=== PATIENT | male | born 1970 | race Caucasian/White ===

== ENCOUNTER 2017-03-13 10:24 | Emergency (ER) | payer OTHER ==
[2017-03-13] MEDS ORDERED: OXYMETAZOLINE 0.05% NASAL 15 SPRAYS/15 ML BTL NASAL ONE (10:48)
--- NOTE | 2017-03-13 14:04 | ER NURSING DOCUMENTATION ---
Nurse's Notes [facility] Name:César Ferguson Age:46 yrs Sex:Male :1970 Arrival Date:03/13/2017 Time:10:24 Bed2 Private MD:Nishant Reeves Diagnosis:Anterior Epistaxis Presentation: 03/13 10:29 Acuity: VIPIN 3 lc 10:29 Transition of care: Home. 10:29 Method Of Arrival: Private Vehicle 10:39 Presenting complaint: Patient states: Bloody nose since 8 am. Notified ED Physician of lp Lopez Martinez notified. Triage Assessment: 10:40 General: Appears in no apparent distress, Behavior is appropriate for age. Pain: Denies lp pain. EENT: Nares with bleeding noted on left. Neuro: No deficits noted. Neuro: Reports weakness baseline patient has MS. Cardiovascular: Respiratory: No deficits noted. GI: No deficits noted. : No deficits noted. Derm: No deficits noted. Musculoskeletal: No deficits noted. Historical: - Allergies: No known drug Allergies; - Home Meds: 1. Tecfidera oral 2. Ampyra oral 3. Baclofen Oral 4. Celexa Oral - PMHx: MULTIPLE SCLEROSIS; Pain- Acute, other (May 22, 2014); - PSHx: NONE; - Tetanus: < 10 years < 10 years. - Ebola Screening: : Patient negative for fever greater than or equal to 101.5 degrees Fahrenheit, and additional compatible Ebola Virus Disease symptoms. Patient denies exposure to infectious person. Patient denies travel to an Ebola-affected area in the 21 days before illness onset. . - Immunization history: Pneumococcal vaccine is up to date, Flu Vaccine < 1 year. - Social history: Smoking status: Patient states was never smoker of tobacco. Screenin:42 Infectious Disease Risk None. Abuse screen: Denies threats or abuse. Denies injuries lp from another. Nutritional screening: No deficits noted. Assessment: 10:42 See Triage Assessment done by same RN. lp 13:53 Reassessment: Patient states feeling better. Patient states symptoms have improved. lc Patient appears in no apparent distress at this time. VSS, NO FURTHER BLEEDING AFTER PACKING, GATORADE GIVEN AND SITTING IN CHAIR. FEELS READY FOR DISCHARGE AND SAFE TO DRIVE.. Vital Signs: 10:41 BP 137 / 90; Pulse 96; Resp 16; Temp 98.2(TE); Pulse Ox 94% on R/A; Weight 72.57 kg; lp Height 5 ft. 9 in. (175.26 cm); Pain 0/10; 12:50 BP 122 / 77; Pulse 86; Resp 20; Pulse Ox 93% on R/A; Pain 0/10; rs 13:05 BP 119 / 84; Pulse 82; Resp 20; Pulse Ox 92% on R/A; Pain 0/10; rs 13:54 BP 123 / 81; Pulse 80; Resp 16; Pulse Ox 92% on R/A; Pain 0/10; lc 10:41 Body Mass Index 23.63 (72.57 kg, 175.26 cm) lp ED Course: 10:26 Patient arrived in ED. ds 10:26 Nishant Reeves MD is Private Physician. ds 10:29 Edwin Marroquin MD is Attending Physician. jm 10:29 Triage completed. lc 10:39 Annia Huitron, TAHMINA is Primary Nurse. lp 10:[address] Marroquin notified. lp 10:42 Valuables Remains with patient Patient has correct armband on for positive lp identification. Placed in gown. Bed in low position. Call light in reach. Side rails up X 1. 12:50 Assist Provider Assist provider with nosebleed control Pt became lightheaded, called rs away to phone. HOB down, encouraged slow deep resp. States this has happened to him before. VSS. Administered Medications: 10:44 Drug: Afrin Drops (0.05 %) 1 sprays; Route: Intranasal; Site: left nare; lp 11:18 Follow up: Response: No adverse reaction; Marked relief of symptoms lp Outcome: 13:43 Discharge ordered by . kasi 13:55 Discharged to home ambulatory. 13:55 Condition: stable 13:55 Discharge Assessment: Patient awake, alert and oriented x 3. No cognitive and/or functional deficits noted. Patient verbalized understanding of disposition instructions. 13:55 Discharge instructions given to patient, Instructed on discharge instructions, follow up and referral plans. Nosebleed care Demonstrated understanding of instructions. 14:03 Patient left the ED. lp 03/14 11:02 Discharge F/U Call: Unable to reach: no answer st 11:02 Discharge F/U Call: Unable to reach: left message with person person taking message: [facility] 15:27 Discharge F/U Call: Spoke with: patient. Are you having any pain? yes. How are you sc1 managing your pain? Patient is taking medication: Ibuprofen and wants to stay with that. 15:27 Discharge F/U Call: Have you filled your prescriptions? n/a Did your discharge instructions answer all of your questions? yes Have you made a f/u appointment? yes Overall Care on a scale of 1-10 with 10 being the best care, you rate our care as: the rating of 10. Further F/U necessary? None needed Signatures: Mary Sharp, RN RN Quiana Juarez RN RN Rosa Wilson RN RN lc Campbell, Sandy, RN RN sc1 Annia Huitron RN RN lp Srot, Deidra, Reg Reg ds Meyer, John, MD MD jm
--- NOTE | 2017-03-13 14:04 | ER PHYSICIAN DOCUMENTATION ---
Physician Documentation [facility] Name:César Ferguson Age:46 yrs Sex:Male :1970 Arrival Date:03/13/2017 Time:10:24 Bed2 Private MD:Nishant Reeves ED, John Disposition: 03/13/17 13:43 Discharged to Home/Self Care. Impression: Anterior Epistaxis. - Condition is Good. - Discharge Instructions: NASAL PACKING, Anterior (Removable). - Medical Reconciliation form form. - Follow up: Emergency Department; When: 3 days; Reason: packing removal. - Problem is new. - Symptoms have improved. HPI: 03/13 12:00 This 46 yrs old Male presents to ER via Private Vehicle with complaints of jm Nose Bleed. 12:00 The patient presents with a nose bleed, that is apparently anterior, from the left jm nare. Onset: The symptom(s)/episode began/occurred acutely. Associated signs and symptoms: Loss of consciousness: the patient experienced no loss of consciousness. Severity of symptoms: in the emergency department the symptoms are unchanged. The patient has experienced similar episodes in the past, but today's symptoms are worse, lasting longer. Historical: - Allergies: No known drug Allergies; - Home Meds: 1. Tecfidera oral 2. Ampyra oral 3. Baclofen Oral 4. Celexa Oral - PMHx: MULTIPLE SCLEROSIS; Pain- Acute, other (May 22, 2014); - PSHx: NONE; - Tetanus: < 10 years < 10 years. - Ebola Screening: : Patient negative for fever greater than or equal to 101.5 degrees Fahrenheit, and additional compatible Ebola Virus Disease symptoms. Patient denies exposure to infectious person. Patient denies travel to an Ebola-affected area in the 21 days before illness onset. . - Immunization history: Pneumococcal vaccine is up to date, Flu Vaccine < 1 year. - Social history: Smoking status: Patient states was never smoker of tobacco. ROS: 12:00 ENT: Positive for nose bleed. 12:00 Abdomen/GI: Negative for nausea, vomiting, hematemesis. 12:00 Neuro: Negative for dizziness, headache, loss of consciousness, numbness. Exam: 12:00 Constitutional: The patient appears alert, awake. 12:00 ENT: Nose: bleeding, is seen from the left nare, and is minimal, Mouth: is normal. 12:00 Neuro: Mentation: is normal, Gait: is steady. Vital Signs: 10:41 BP 137 / 90; Pulse 96; Resp 16; Temp 98.2(TE); Pulse Ox 94% on R/A; Weight 72.57 kg; lp Height 5 ft. 9 in. (175.26 cm); Pain 0/10; 12:50 BP 122 / 77; Pulse 86; Resp 20; Pulse Ox 93% on R/A; Pain 0/10; rs 13:05 BP 119 / 84; Pulse 82; Resp 20; Pulse Ox 92% on R/A; Pain 0/10; rs 13:54 BP 123 / 81; Pulse 80; Resp 16; Pulse Ox 92% on R/A; Pain 0/10; lc 10:41 Body Mass Index 23.63 (72.57 kg, 175.26 cm) lp Procedures: 12:00 Epistaxis treatment: A small amount of bleeding noted from left nare. Treated using Oxymetazoline sprays, direct pressure, nasal clamp, anterior packing, nasal tampon, Bleeding stopped. MDM: 10:29 Patient medically screened. 12:00 Differential diagnosis: spontaneous epistaxis. Data reviewed: vital signs, nurses notes, and as a result, I will discharge patient. Counseling: I had a detailed discussion with the patient and/or guardian regarding: the historical points, exam findings, and any diagnostic results supporting the discharge/admit diagnosis, the need for outpatient follow up, with the patient's primary care provider, an ENT specialist. Response to treatment: the patient's symptoms have resolved after treatment. 03/13 11:55 Order name: Gelfoam, Intranasal, one application; Complete Time: 14:03 Dispensed Medications: 10:44 Drug: Afrin Drops (0.05 %) 1 sprays; Route: Intranasal; Site: left nare; lp 11:18 Follow up: Response: No adverse reaction; Marked relief of symptoms lp Signatures: Rosa Lai RN RN lc Pavlish, Lena, RN RN lp Meyer, John, MD MD
== END 2017-03-13 14:04 | disposition home or self-care (01) ==
LOC: ER 10:24
DX: R04.0 Epistaxis (principal); G35 Multiple sclerosis; Z79.899 Other long term (current) drug therapy
CPT/HCPCS: 30901; 30903; 99283

== ENCOUNTER 2017-03-16 09:09 | Emergency (ER) | payer OTHER ==
--- NOTE | 2017-03-16 09:37 | ER NURSING DOCUMENTATION ---
Nurse's Notes [facility] Name:César Ferguson Age:46 yrs Sex:Male :1970 Arrival Date:03/16/2017 Time:09:09 Bed1 Private MD:Nishant Reeves Diagnosis:Anterior Epistaxis Presentation: 03/16 09:12 Acuity: VIPIN 5 rh 09:31 Presenting complaint: Patient states: Nasal packing removal. Transition of care: Home. 09:31 Method Of Arrival: Private Vehicle Triage Assessment: 09:32 General: Appears in no apparent distress, Behavior is cooperative. Pain: Denies pain. rh EENT: Nares on left Nasal packing noted . Neuro: Level of Consciousness is awake, alert, obeys commands, Oriented to person, place, time, event. Historical: - Allergies: No known drug Allergies; - Home Meds: 1. Tecfidera oral 2. Ampyra oral 3. Baclofen Oral 4. Celexa Oral - PMHx: MULTIPLE SCLEROSIS; Pain- Acute, other (May 22, 2014); Anterior Epistaxis (March 13, 2017); - PSHx: NONE; - Tetanus: < 10 years. - Ebola Screening: : Patient negative for fever greater than or equal to 101.5 degrees Fahrenheit, and additional compatible Ebola Virus Disease symptoms. - Immunization history: Flu Vaccine >1 year. - Social history: Smoking status: Patient states was never smoker of tobacco. Screenin:34 Infectious Disease Risk None. Abuse screen: Denies threats or abuse. Denies injuries rh from another. Nutritional screening: No deficits noted. Assessment: 09:34 See Triage Assessment done by same RN. rh Vital Signs: 09:20 BP 109 / 72; Pulse 92; Resp 15; Temp 98.2(TE); Pulse Ox 96% on R/A; Weight 70.31 kg; rh Height 5 ft. 9 in. (175.26 cm); Pain 0/10; 09:20 Body Mass Index 22.89 (70.31 kg, 175.26 cm) ED Course: 09:11 Patient arrived in ED. lm3 09:11 Nishant Reeves MD is Private Physician. lm3 09:12 Qi Duckworth is Primary Nurse. rh 09:12 Triage completed. rh 09:13 Ryan Thomas MD is Attending Physician. de 09:34 Valuables Remains with patient Patient has correct armband on for positive rh identification. Bed in low position. 09:34 Nasal packing removed from the left nare, pt tolerated well, no bleeding noted. rh Administered Medications: No medications were administered Outcome: 09:35 Discharged to home ambulatory. 09:35 Condition: improved 09:35 Discharge Assessment: Patient awake, alert and oriented x 3. No cognitive and/or functional deficits noted. Patient verbalized understanding of disposition instructions. 09:35 Discharge instructions given to patient, Instructed on discharge instructions, follow up and referral plans. Demonstrated understanding of instructions. 09:35 No charge visit due to Nasal Packing Removal . 09:35 Discharge ordered by MD. 09:36 Patient left the ED. 03/17 11:36 Discharge F/U Call: Spoke with: patient. Overall Care on a scale of 1-10 with 10 lc being the best care, you rate our care as: Other comments: SL BLEEDING AFTER BLOWING NOSE, ENCOURAGED NOT TO DO THAT AND APPLY PRESSURE IF NEEDED. WILL FU WITH ENT IF BLEEDING EPISODES CONTINUE Signatures: Rosa Lai, RN RN lc Ryan Thomas MD MD sc Hofsess, Rachel Augustina Morris lm3
== END 2017-03-16 09:36 | disposition home or self-care (01) ==
LOC: ER 09:09
DX: Z48.00 Encounter for change or removal of nonsurgical wound dressing (principal); R04.0 Epistaxis